=== PATIENT | male | born 1995 | race Caucasian/White ===

== ENCOUNTER 2021-04-11 07:56 | Emergency (ER) | payer OTHER ==
[~2021-04-11] VITALS: Ht 177.8 cm; Wt 90.7 kg
[2021-04-11 08:10] VITALS: BP 140/86
[2021-04-11] MEDS ORDERED: NOHOMEMEDICATIONS (08:16)
[2021-04-11] MEDS ORDERED: HYDROCODON-ACE1 EAC7 PO (08:59)
[2021-04-11] MEDS ORDERED: FLEXERIL PO (08:59)
== END 2021-04-11 09:46 | disposition home or self-care (01) ==
LOC: M.ERS 07:56
DX: S20.222A Contusion of left back wall of thorax, initial encounter (principal); V89.2XXA Person injured in unspecified motor-vehicle accident, traffic, initial encounter; Y93.89 Activity, other specified; Y92.89 Other specified places as the place of occurrence of the external cause; Y99.8 Other external cause status